=== PATIENT | male | born 1960 | race Caucasian/White ===

== ENCOUNTER → 2016-06-14 | Outpatient (CLI) | payer OTHER ==
[~2016-06-14] MED LIST: DIAZEPAM 10 MG TABLET ONE; FENTANYL PF 100 MCG/2 ML VIAL. ONE; IOHEXOL 350 MG/ML 100ML VIAL. ONE; IV NORMAL SALINE 1000ML BAG 1,000 ML ONE; LIDOCAINE 1% Multi-Dose 20 ML VIAL. ONE; MIDAZOLAM HCL 2 MG/2 ML VIAL. ONE
== END | disposition home or self-care (01) ==
LOC: PCVCINTER 10:43
PROVIDERS: ATTEND Internal Medicine Cardiovascular Disease
DX: I25.10 Atherosclerotic heart disease of native coronary artery without angina pectoris (principal); I10 Essential (primary) hypertension; E78.00 Pure hypercholesterolemia, unspecified; R06.02 Shortness of breath; R07.89 Other chest pain; Z72.0 Tobacco use
CPT/HCPCS: 75625; 93458; C1751; C1760; C1769; C1894; J2250; J3010; J7030; Q9967

== ENCOUNTER → 2016-12-02 | Outpatient (CLI) | payer OTHER ==
[~2016-12-02] MED LIST changes: -DIAZEPAM 10 MG TABLET ONE; -FENTANYL PF 100 MCG/2 ML VIAL. ONE; -IOHEXOL 350 MG/ML 100ML VIAL. ONE; -IV NORMAL SALINE 1000ML BAG 1,000 ML ONE; -LIDOCAINE 1% Multi-Dose 20 ML VIAL. ONE; -MIDAZOLAM HCL 2 MG/2 ML VIAL. ONE; +REGADENOSON 0.4 MG/5 ML DISP.SYRIN. IV ONE
--- NOTE | 2016-12-02 19:01 | PCVCIMAG ---
APPROVED REPORT Exam: Nuclear Stress Test Indication: CAD, High Ca Score Patient Location: Out-Patient Stress Nurse: Kaal Philip RN, Nalini Lew RN [place] Tech:Perla DuranROSANA nguyenMT Ht: 5 ft 10 in Wt: 200 lbs BSA: 2.09 m2 HR: 56 bpm BP: 159/74 mmHg BMI: 28.6 Rhythm: NSR with incomplete RBBB Medical History Medical History: HTN, Hyperlipidemia, CVD, Former Smoker Medications: Aspirin, lisinopril, coQ10, crestor Allergies: No known drug allergies Cardiac Risk Factors: Age Pretest Chest Pain Characteristics: No chest pain Exercise History: Physically active NM EXAM: Myocardial Perfusion REST/STRESS Imaging Protocol: Rest Tc-99m/Stress Tc-99m 1 day Resting Data Rest SPECT myocardial perfusion imaging was performed in supine position 45 minutes following the intravenous injection of 10.3 mCi of Tc-99m Sestamibi. Time of rest injection: 0800 Date: 12/02/2016 Pharmacologic Stress Pharmacologic stress test was performed by injecting Regadenoson 0.4 mg IV push followed by the intravenous injection of 34.1 mCi of Tc-99m Sestamibi. Time of stress injection: 0915 Date: 12/02/2016 Administration Route: IV Administration Site: Right Hand Gated Stress SPECT was performed 45 minutes after stress injection. The images were gated to evaluate regional wall motion and calculate left ventricular ejection fraction. Study Quality Study: Good Study Data Post stress, the left ventricular ejection was 71%.. SSS: 1 SRS: 1 SDS: 1 TID = 0.87. Perfusion No evidence of stress induced ischemia or prior myocardial infarction. Wall Motion Normal left ventricular size and function with no regional wall motion abnormalities. Nuclear Conclusion No evidence of stress induced ischemia or prior myocardial infarction. Normal left ventricular size and function with no regional wall motion abnormalities. Post stress, the left ventricular ejection was 71%.. No prior study available for comparison. Interpreted by: Erwin Mendoza MD Electronically Approved: 12/02/2016 13:20:31 Stress Test Details Stress Test: Pharmacologic stress was paired with low level exercise. Reason for pharmacologic stress test: physical limitation. HR Resting HR: 56 bpmMax Heart Rate (APMHR): 165 bpm Max HR Achieved: 72 bpmTarget HR (85% APMHR): 140 bpm % of APMHR: 43 Recovery HR: 62 bpm BP Resting BP: 159/74 mmHg Max BP: 160/74 mmHg Recovery BP: 161/76 mmHg ECG Resting ECG: Sinus Bradycardia with incomplete R BBB Stress ECG: Sinus Rhythm, NSSTT changes Recovery ECG: Sinus Rhythm with incomplete R BBB Recovery ST Change: None Clinical Reason for Termination: Completed protocol Stress Symptoms: Dyspnea, resolved during recovery Exercise duration: 4 min sec Exercise capacity: 1.6 METs Stress ECG Conclusion ECG: Non-ischemic <Conclusion> ECG: Non-ischemic
== END | disposition home or self-care (01) ==
LOC: PCVCIMAG 07:37
PROVIDERS: ATTEND Internal Medicine Cardiovascular Disease
DX: I25.10 Atherosclerotic heart disease of native coronary artery without angina pectoris (principal); E83.52 Hypercalcemia; E78.5 Hyperlipidemia, unspecified; Z87.891 Personal history of nicotine dependence
CPT/HCPCS: 78452; 93017; A9500; J2785

== ENCOUNTER → 2018-03-02 | Outpatient (CLI) | payer OTHER ==
--- NOTE | 2018-03-02 15:05 | PCVCIMAG ---
APPROVED REPORT Study performed: 03/02/2018 11:27:59 Exam: Stress Echocardiogram Indication: CAD , Hyperlipidemia, Hypertension, Elevated CA Score, Dyspnea Patient Location: Echo lab Stress Nurse: Maria Del Carmen Boss RN Status: routine Ht: 5 ft 10 in HR: 61 bpm BP: 140/80 mmHg Rhythm: NSR Procedure The patient underwent an Exercise Stress Test using the [facility] Protocol. Blood pressure, heart rate, and EKG were monitored. An Echocardiogram was performed by dialysis patient care technician in four stages in quad fashion. At peak stress, four selected images were obtained and placed side by side with resting images for comparison. Stress Test Details Stress Test: Exercise stress testing was performed using a Benoit protocol. HR Resting HR: 61 bpmMax Heart Rate (APMHR): 164 bpm Max HR Achieved: 157 bpmTarget HR (85% APMHR): 139 bpm % of APMHR: 95 Recovery HR: 93 bpm HR response to stress: Normal HR response to stress BP Resting BP: 140/80 mmHg Max BP: 240/80 mmHg Recovery BP: 146/80 mmHg ECG Resting ECG: Sinus Rhythm Stress ECG: Sinus Rhythm Arrhythmia: Occasional PVC's Recovery ECG: Sinus Rhythm Recovery Arrhythmia: Occasional PVC's Clinical Reason for Termination: Maximal effort, HTN Exercise duration: 9 min 00 sec Highest Stage Achieved: Stage 4: 4.2 mph at 16% grade. Exercise capacity: 10.10 METs Overall Exercise Capacity for Age: Good Stress ECG Conclusion ECG: Non-ischemic Clinical: Non-ischemic Pre-Stress Echo The resting Echocardiogram showed normal left ventricular contractility with an estimated Ejection Fraction of about >55%. Normal wall motion in all segments on baseline images. Post-Stress Echo The stress Echocardiogram showed normal left ventricular contractility with an estimated Ejection Fraction of about 60-65%. Normal augmentation of wall motion in all segments on post stress images. Clinical No clinical or ECG evidence for ischemia. Abnormal hypertensive response to stress. Conclusion Clinical Response: Non-ischemic Exercise Capacity: Average Stress ECG Response: Non-ischemic Stress Echo Images: Non-ischemic Other Information Study Quality: Good
== END | disposition home or self-care (01) ==
LOC: PCVCIMAG 12:54
PROVIDERS: ATTEND Internal Medicine Cardiovascular Disease
DX: I25.10 Atherosclerotic heart disease of native coronary artery without angina pectoris (principal); I10 Essential (primary) hypertension; R06.09 Other forms of dyspnea; E78.5 Hyperlipidemia, unspecified
CPT/HCPCS: 93325; 93351

== ENCOUNTER → 2019-06-04 | Outpatient (CLI) | payer OTHER ==
--- NOTE | 2019-06-04 15:52 | PCVCIMAG ---
APPROVED REPORT Study performed: 06/04/2019 14:52:33 Exam: Stress Echocardiogram Indication: CAD, dyspnea, fam hx cad Patient Location: Echo lab Stress Nurse: Maria Del Carmen Boss RN Status: routine Ht: 5 ft 10 in HR: 60 bpm BP: 136/80 mmHg Rhythm: NSR Procedure The patient underwent an Exercise Stress Test using the Benoit Protocol. Blood pressure, heart rate, and EKG were monitored. An Echocardiogram was performed by diesel technician mechanic in four stages in quad fashion. At peak stress, four selected images were obtained and placed side by side with resting images for comparison. Stress Test Details Stress Test: Exercise stress testing was performed using a Benoit protocol. HR Resting HR: 60 bpmMax Heart Rate (APMHR): 163 bpm Max HR Achieved: 160 bpmTarget HR (85% APMHR): 138 bpm % of APMHR: 98 Recovery HR: 94 bpm HR response to stress: Normal HR response to stress BP Resting BP: 136/80 mmHg Max BP: 212/84 mmHg Recovery BP: 196/90 mmHg BP response to stress: Normal blood pressure response to stress. ECG Resting ECG: Sinus Rhythm Stress ECG: Sinus Rhythm ST Change: Normal Arrhythmia: occasional PVC Recovery ECG: Sinus Rhythm Recovery ST Change: Normal Recovery Arrhythmia: None Clinical Reason for Termination: Maximal effort Stress Symptoms: Dyspnea Exercise duration: 10 min 31 sec Highest Stage Achieved: Stage 4: 4.2 mph at 16% grade. Exercise capacity: 13.4 METs Overall Exercise Capacity for Age: Normal Scale: Active Angina Score: None Pre-Stress Echo The resting Echocardiogram showed normal left ventricular contractility with an estimated Ejection Fraction of about >55%. Normal wall motion in all segments on baseline images. Post-Stress Echo The stress Echocardiogram showed normal left ventricular contractility with an estimated Ejection Fraction of about 60-65%. Equivocal distal inferior hypokinesis. Clinical No clinical or ECG evidence for ischemia. Conclusion Clinical Response: Non-ischemic Exercise Capacity: Average Stress ECG Response: Non-ischemic Stress Echo Images: Equivocal- distal inferior hypokinesis The left ventricle is normal in size and wall thickness in both the rest and stress images. Bicuspid aortic valve with raphe present with mild aortic insufficiency and no stenosis. Normal mitral, tricuspid, and pulmonic valves. Other Information Study Quality: Adequate <Conclusion> The left ventricle is normal in size and wall thickness in both the rest and stress images. Bicuspid aortic valve with raphe present with mild aortic insufficiency and no stenosis. Normal mitral, tricuspid, and pulmonic valves.
== END | disposition home or self-care (01) ==
LOC: PCVCIMAG 14:45
PROVIDERS: ATTEND Internal Medicine Cardiovascular Disease
DX: I35.1 Nonrheumatic aortic (valve) insufficiency (principal); I25.10 Atherosclerotic heart disease of native coronary artery without angina pectoris; Z82.49 Family history of ischemic heart disease and other diseases of the circulatory system
CPT/HCPCS: 93325; 93351